=== PATIENT | male | born 1970 | race Two or more races ===

== ENCOUNTER 2018-06-10 18:07 | Emergency (ER) | payer MEDICAID, MEDICARE ==
[~2018-06-10] VITALS: Ht 170.2 cm; Wt 78.9 kg
[2018-06-10 18:19] VITALS: BP 145/79
[2018-06-10] MEDS ORDERED: DIAZEPAM 10 MG TABLET PO ONE (21:00)
[2018-06-10] MEDS ORDERED: KETOROLAC TROMETHAMINE INJ 60 MG/2 ML VIAL IM ONE ×2 (21:00→21:11)
[2018-06-10] MEDS ORDERED: DIAZEPAM 5 MG TABLET ONE (21:11)
== END 2018-06-10 22:07 | disposition home or self-care (01) ==
LOC: ER 18:11
DX: M54.5 Low back pain (principal)
CPT/HCPCS: 72074-TC; 72110-TC; J1885